=== PATIENT | female | born 1960 | race Caucasian/White ===

== ENCOUNTER 2016-05-17 14:20 | Outpatient (CLI) | payer MEDICARE, OTHER ==
[~2016-05-17] VITALS: Ht 165.1 cm; Wt 82.7 kg
[~2016-05-17 14:20] MED LIST: BACLOFEN20 M1 PO; DYAZIDE 37.5/251 CAP PO; GILENYA PO; K-TAB10 MEQ PO; KLONOPIN0.5 MG PO; LOPRESSOR25 MG PO; NEURONTIN 300300 MG PO; NUVIGIL150 MG PO; OXYBUTYNIN CHLOR5 MG PO; PAXIL CR25 MG PO; PLAVIX75 MG PO; PRAVACHOL20 MG PO; PRILOSEC20 MG PO; [UNRECOGNIZED DRUG - OTHER]
[2016-05-17 15:38] VITALS: Ht 165.1 cm; Wt 82.7 kg
== END 2016-05-17 15:55 | disposition home or self-care (01) ==
LOC: D.OPS 14:20
DX: G35 Multiple sclerosis (principal)

== ENCOUNTER 2016-09-05 14:08 | Outpatient (CLI) | payer MEDICARE, OTHER ==
[~2016-09-05] VITALS: Ht 165.1 cm; Wt 77.3 kg
[2016-09-05] MEDS ORDERED: COPAXONE INJ20 MG/ML SQ (15:25)
[2016-09-05 15:30] VITALS: BP 133/77; Ht 165.1 cm; Wt 77.3 kg
--- NOTE | 2016-09-05 15:44 | NUR ---
RIGHT UPPER CHEST AXCESS RIGHT INFUSAPORT WITH 19G GREGORIO NEEDLE USING STERILE TECHNIQUE, FLUSH AND PATENT GOOD BLOOD RETURN OBTAINED FLUSH WITH HEPARIN LOCK FLUSH. REMOVED GREGORIO NEELE INTACT. BANDAID APPLIED.
== END 2016-09-05 15:42 | disposition home or self-care (01) ==
LOC: D.OPS 14:08
DX: G35 Multiple sclerosis (principal)

== ENCOUNTER 2016-10-26 14:13 | Outpatient (CLI) | payer MEDICARE, OTHER ==
[~2016-10-26] VITALS: Ht 165.1 cm; Wt 82.3 kg
[~2016-10-26 14:13] MED LIST changes: +COPAXONE INJ20 MG/ML SQ
[2016-10-26] MEDS ORDERED: REQUIP5 MG PO (14:34)
[2016-10-26] MEDS ORDERED: CELEXA20 MG PO (14:34)
[2016-10-26 14:38] VITALS: BP 128/61; Ht 165.1 cm; Wt 82.3 kg
--- NOTE | 2016-10-26 15:25 | NUR ---
1520 PT GIVEN DISCHARGE INSTRUCTIONS. NO QUESTIONS OR CONCERNS. ESCORTED PATIENT OUT.
== END 2016-10-26 15:20 ==
LOC: D.OPS 14:13
DX: G35 Multiple sclerosis (principal)

== ENCOUNTER → 2016-11-25 14:05 | Outpatient (CLI) | payer MEDICARE, OTHER ==
[2016-10-26 14:38] VITALS: BMI 30.1
[~2016-11-25 14:05] MED LIST changes: +CELEXA20 MG PO; +REQUIP5 MG PO
== END | disposition home or self-care (01) ==
LOC: D.NM 11-22 14:00
DX: K62.5 Hemorrhage of anus and rectum (principal)

== ENCOUNTER 2016-12-28 14:25 | Outpatient (CLI) | payer MEDICARE, OTHER ==
[~2016-12-28] VITALS: Ht 165.1 cm; Wt 73.2 kg
--- NOTE | 2016-12-28 15:15 | NUR ---
RIGHT SCL INFUSAPORT ACCESSED USING STERILE TECHNIQUE WITH 19G X 1 INCH GREGORIO NEEDLE/PREPRIMED WITH NS. GOOD BLOOD RETURN NOTED, FLUSHED WITH 10ML NS AND 500 UNITS OF HEPARIN/100 UNITS PER ML. TOLERATED WELL, NEEDLE REMOVED, BANDAID APPLIED.
[2016-12-28 15:21] VITALS: BP 140/78; BMI 26.8
[2016-12-28 15:33] VITALS: BP 140/78; Ht 165.1 cm; Wt 73.2 kg
== END 2016-12-28 15:30 | disposition home or self-care (01) ==
LOC: D.OPS 14:25
DX: G35 Multiple sclerosis (principal)

== ENCOUNTER 2017-01-30 10:30 | Outpatient (CLI) | payer MEDICARE, OTHER ==
[~2017-01-30 10:30] MED LIST changes: +CELEXA10 MG PO; -CELEXA20 MG PO
[2017-01-30 12:06] VITALS: BMI 26.8
== END 2017-01-30 23:59 | disposition home or self-care (01) ==
LOC: D.OPS 10:30 → EDSTATUS 02-15 13:30 → D.OPS 02-15 13:30
DX: K21.0 Gastro-esophageal reflux disease with esophagitis (principal); K44.9 Diaphragmatic hernia without obstruction or gangrene; R12 Heartburn; Z01.812 Encounter for preprocedural laboratory examination

== ENCOUNTER 2017-01-30 11:31 | Day surgery (SDC) | payer MEDICARE, OTHER ==
[2017-01-30 11:30] LABS: HEMATOCRIT 41.7 % (36.0-48.0); MCH 24.4 pg (26.0-34.0); MCHC 31.2 g/dL (31.0-37.0); MCV 78.4 fL (80.0-100.0); MEAN PLATELET VOLUME 8.9 fL (7.4-10.4); RBC 5.32 10x6/uL (4.00-5.40); RDW 22.6 % (11.5-14.5); WBC 3.4 10x3/uL (4.8-10.8)
[2017-01-30 12:06] VITALS: BP 137/70; BMI 26.8
--- NOTE | 2017-01-30 13:00 | NUR ---
PT REC'D TO ROOM VIA STRETCHER. DROWSY, RESPONDS TO VERBAL STIMULI. VOISE IN TO TALK WITH PT AND CAREGIVER.
--- NOTE | 2017-01-30 13:34 | NUR ---
PT AWAKE, FL RUY PROVIDED, ASSISTED BY CAREGIVER.
--- NOTE | 2017-01-30 13:47 | NUR ---
TOLERATED FULL LIQ DIET
--- NOTE | 2017-01-30 14:10 | NUR ---
RIGHT PORT FLUSHED WITH NS FOLLOWED BY HEP FLUSH PER PROTOCOL. GREGORIO NEEDLE D/C'D CATH INTACT, SITE COVERED WITH BANDAID.
--- NOTE | 2017-01-30 14:20 | NUR ---
PT HERE TO ASSIST PT BACK TO W/C.
--- NOTE | 2017-01-30 14:45 | NUR ---
D/C INSTRUCTIONS EXPLAINED TO PT AND CAREGIVER. COPIES OF ALL GIVEN. D/C'D HOME VIA W/C TO PRIVATE CAR.
--- NOTE | 2017-02-16 07:24 | OP ---
PATIENT NAME: ALBERT GARCIA MEDICAL RECORD: [id number] :62 LOCATION:[facility] ADMISSION DATE: SURGEON: WASHINGTON DAVIS DO DATE OF OPERATION: 01/30/2017 PROCEDURE: EGD with biopsies. INDICATIONS FOR PROCEDURE: Heartburn. SCOPE: Olympus video gastroscope. MEDICATIONS: Propofol 70 mg IV per anesthesia. ESTIMATED BLOOD LOSS: Minimal. COMPLICATIONS: None. FINDINGS: Informed consent was given. The patient was made comfortable with the above medication. After reaching an adequate level of sedation by slow IV push, the patient was placed on her left side. The endoscope was then advanced under direct visualization through the mouth to the third portion of the duodenum. The upper and middle thirds of the esophagus appeared normal. In the lower third of the esophagus and down to the GE junction, there was evidence of LA class B reflux induced esophagitis with a couple streaks extending upward approximately 5 or more centimeters. From the GE junction and from a retroflexed view within the stomach, a medium-sized hiatal hernia was evident. It was approximately 4 mm in length. There were no associated ulcers or erosions. The mucosa of the stomach was normal in its entirety. Random biopsies were taken from the antrum, incisura, and body of the stomach to submit for histology and to rule out H. pylori. The endoscope was advanced beyond the pylorus into the duodenum where the whole exam of the duodenum appeared normal. Scope was withdrawn from the patient. The patient tolerated the procedure well and there were no complications. IMPRESSION: 1. LA class B reflux-induced esophagitis. 2. Moderate sized hiatal hernia, likely relating to reflux. PLAN AND RECOMMENDATIONS: 1. Discharge home when recovery parameters are met. 2. Follow up biopsy specimen results. 3. GERD diet and reflux precautions. 4. Continue omeprazole 20 mg daily versus trial of Pepcid or Zantac once daily. 5. We will discuss the option of a referral to surgery for consideration of a fundoplication with the patient. As well as her symptoms are controlled, she may benefit most from staying on her current antacid therapy and avoiding surgery. 6. Proceed with colonoscopy as scheduled for colon cancer screening. 7. Follow up in GI clinic as needed. TRANSINT:[id number] Voice Confirmation ID: [id number] DOCUMENT ID: [id number] OPERATIVE REPORT [id number] RADHA,ALBERTWASHINGTON DRISCOLL DO at 0724 CC: [id number] DICTATION DATE: 01/30/17 1247 CONSUMER RELATIONS SPECIALIST: 01/30/17 1417 [facility] 01/30/17 [facility] [address] [place] [address]
== END 2017-01-30 14:48 | disposition home or self-care (01) ==
LOC: D.OPS 11:31
PROVIDERS: Anesthesiology
DX: R12 Heartburn (principal); Z87.891 Personal history of nicotine dependence; I25.10 Atherosclerotic heart disease of native coronary artery without angina pectoris; K21.0 Gastro-esophageal reflux disease with esophagitis; Z95.5 Presence of coronary angioplasty implant and graft; K44.9 Diaphragmatic hernia without obstruction or gangrene; Z01.812 Encounter for preprocedural laboratory examination

== ENCOUNTER 2017-04-25 13:25 | Outpatient (CLI) | payer MEDICARE, OTHER ==
[~2017-04-25] VITALS: Ht 165.1 cm; Wt 73.6 kg
[2017-04-25 14:09] VITALS: Ht 165.1 cm; Wt 73.6 kg
== END 2017-04-25 14:36 | disposition home or self-care (01) ==
LOC: D.OPS 13:25
DX: Z45.2 Encounter for adjustment and management of vascular access device (principal); G35 Multiple sclerosis

== ENCOUNTER 2017-08-15 13:48 | Outpatient (CLI) | payer MEDICARE, OTHER ==
[~2017-08-15] VITALS: Ht 165.1 cm; Wt 75.9 kg
[2017-08-15 14:18] VITALS: BP 130/64; Ht 165.1 cm; Wt 75.9 kg
== END 2017-08-15 14:49 | disposition home or self-care (01) ==
LOC: D.OPS 13:48
DX: G35 Multiple sclerosis (principal)

== ENCOUNTER 2017-09-14 13:58 | Outpatient (CLI) | payer MEDICARE, OTHER ==
[~2017-09-14] VITALS: Ht 165.1 cm; Wt 73.6 kg
[2017-09-14 14:26] VITALS: BP 117/60; Ht 165.1 cm; Wt 73.6 kg
== END 2017-09-14 14:40 | disposition home or self-care (01) ==
LOC: D.OPS 13:58
DX: G35 Multiple sclerosis (principal)

== ENCOUNTER 2017-10-26 13:57 | Outpatient (CLI) | payer MEDICARE, OTHER ==
[~2017-10-26] VITALS: Ht 165.1 cm; Wt 74.1 kg
[2017-10-26 14:17] VITALS: BP 138/64; Ht 165.1 cm; Wt 74.1 kg
== END 2017-10-26 14:39 | disposition home or self-care (01) ==
LOC: D.OPS 13:57
DX: G35 Multiple sclerosis (principal); Z01.812 Encounter for preprocedural laboratory examination

== ENCOUNTER 2017-12-13 14:22 | Outpatient (CLI) | payer MEDICARE, OTHER ==
[~2017-12-13] VITALS: Ht 165.1 cm; Wt 73.6 kg
[2017-12-13 14:43] VITALS: BP 113/64; Ht 165.1 cm; Wt 73.6 kg
== END 2017-12-13 15:00 ==
LOC: D.OPS 14:22
DX: G35 Multiple sclerosis (principal); Z01.812 Encounter for preprocedural laboratory examination

== ENCOUNTER → 2018-02-08 11:58 | Outpatient (CLI) | payer MEDICARE, OTHER ==
[~2018-02-08] VITALS: Ht 165.1 cm; Wt 75.9 kg
[2018-02-08 12:40] VITALS: BP 125/68; Ht 165.1 cm; Wt 75.9 kg
== END | disposition home or self-care (01) ==
LOC: D.OPS 11:58
DX: G35 Multiple sclerosis (principal); Z01.812 Encounter for preprocedural laboratory examination

== ENCOUNTER 2018-04-05 13:34 | Outpatient (CLI) | payer MEDICARE, OTHER ==
[~2018-04-05] VITALS: Ht 165.1 cm; Wt 75.9 kg
[2018-04-05 14:22] VITALS: BP 114/58; Ht 165.1 cm; Wt 75.9 kg
== END 2018-04-05 14:49 | disposition home or self-care (01) ==
LOC: D.OPS 13:34
DX: G35 Multiple sclerosis (principal); Z01.812 Encounter for preprocedural laboratory examination

== ENCOUNTER 2018-05-15 14:19 | Outpatient (CLI) | payer MEDICARE, OTHER ==
[~2018-05-15] VITALS: Ht 165.1 cm; Wt 78.2 kg
[2018-05-15 14:58] VITALS: Ht 165.1 cm; Wt 78.2 kg
== END 2018-05-15 15:15 | disposition home or self-care (01) ==
LOC: D.OPS 14:19
DX: G35 Multiple sclerosis (principal)

== ENCOUNTER 2018-06-14 14:16 | Outpatient (CLI) | payer MEDICARE, OTHER ==
[~2018-06-14] VITALS: Ht 165.1 cm; Wt 75.0 kg
[2018-06-14 14:50] VITALS: BP 107/49; Ht 165.1 cm; Wt 75.0 kg
--- NOTE | 2018-06-14 15:26 | NUR ---
1451 ACCESSED PAC USING STERILE TECHNIQUE WITH 19G 1" GREGORIO NEEDLE. EXCELLENT BLOOD RETURN OBTAINED. FLUSHED WITH 10CC NS AND 5CC HEPFLUSH. GREGORIO NEEDLE REMOVED WITHOUT DIFFICULTY. NEEDLE INTACT. BANDAID APPLIED.
== END 2018-06-14 15:18 | disposition home or self-care (01) ==
LOC: D.OPS 14:16
PROVIDERS: ATTEND Family Medicine
DX: G35 Multiple sclerosis (principal)

== ENCOUNTER 2018-07-20 16:05 | Inpatient (IN) | payer MEDICARE, OTHER ==
[2018-07-20] MEDS ORDERED: TAMOXIFEN CITRA20 MG PO (18:19)
[2018-07-20 18:30] VITALS: BP 146/75; BMI 28.6
[2018-07-20 19:04] LABS: BASOPHILS 0.2 % (0-2); EOSINOPHILS 1.1 % (0-7); HEMOGLOBIN 11.9 g/dL (12-16); IMMATURE GRANULOCYTES 0.1 % (0-5); MCH 27.2 pg (26.0-34.0); MCHC 33.1 g/dL (31.0-37.0); MCV 82.2 fL (80.0-100.0); MEAN PLATELET VOLUME 9.2 fL (7.4-10.4); NEUTROPHILS 69.6 % (40-80); PLATELET COUNT 204 10x3/uL (130-400); RBC 4.38 10x6/uL (4.00-5.40); RDW 14.6 % (11.5-14.5); WBC 9.1 10x3/uL (4.8-10.8)
[2018-07-20 19:08] LABS: CALC OSMOLALITY 273 mosm/kg (275-300); CALCIUM 8.9 mg/dL (8.5-10.1); CARBON DIOXIDE 30.3 mmol/L (21.0-32.0); CHLORIDE - SERUM 97 mmol/L (98-107); CREATININE - SERUM 0.5 mg/dL (0.6-1.3); GLUCOSE 88 mg/dL (74-106); POTASSIUM - SERUM 3.5 mmol/L (3.5-5.1); SODIUM 137 mmol/L (136-145); UREA NITROGEN 14 mg/dL (7-18); eGFR NON AFRICAN AMERICAN > 90 mL/min (90-120)
[2018-07-20 19:36] LABS: CKMB 3.1 U/L (0.0-3.6); CREATINE KINASE 89 UL (21-215)
[2018-07-20 19:40] LABS: TROPONIN-I < 0.017 ng/mL (0.000-0.060)
[2018-07-20 19:56] VITALS: BP 145/61
[2018-07-21] VITALS: BP 91/45
[2018-07-21 00:15] LABS: CKMB 2.4 U/L (0.0-3.6); CREATINE KINASE 71 UL (21-215); TROPONIN-I < 0.017 ng/mL (0.000-0.060)
[2018-07-21 05:22] LABS: BASOPHILS 0.4 % (0-2); EOSINOPHILS 2.4 % (0-7); HEMATOCRIT 30.7 % (36.0-48.0); HEMOGLOBIN 10.3 g/dL (12-16); IMMATURE GRANULOCYTES 0.2 % (0-5); LYMPHOCYTES 25.1 % (15-50); MCH 27.5 pg (26.0-34.0); MCHC 33.6 g/dL (31.0-37.0); MCV 82.1 fL (80.0-100.0); MEAN PLATELET VOLUME 9.2 fL (7.4-10.4); NEUTROPHILS 59.9 % (40-80); PLATELET COUNT 175 10x3/uL (130-400); RBC 3.74 10x6/uL (4.00-5.40); RDW 14.7 % (11.5-14.5)
[2018-07-21 05:55] LABS: ALBUMIN 2.8 g/dL (3.4-5.0); ALKALINE PHOSPHATASE 42 U/L (46-116); ALT (SGPT) 23 U/L (10-68); BILIRUBIN - TOTAL 0.34 mg/dL (0.2-1.3); CALC OSMOLALITY 277 mosm/kg (275-300); CALCIUM 7.8 mg/dL (8.5-10.1); CARBON DIOXIDE 31.4 mmol/L (21.0-32.0); CHLORIDE - SERUM 102 mmol/L (98-107); CREATINE KINASE 65 UL (21-215); CREATININE - SERUM 0.5 mg/dL (0.6-1.3); GLUCOSE 90 mg/dL (74-106); POTASSIUM - SERUM 3.6 mmol/L (3.5-5.1); PROTEIN - SERUM 5.5 g/dL (6.4-8.2); SODIUM 139 mmol/L (136-145); TROPONIN-I < 0.017 ng/mL (0.000-0.060); UREA NITROGEN 12 mg/dL (7-18); eGFR NON AFRICAN AMERICAN > 90 mL/min (90-120)
[2018-07-21 08:59] VITALS: BP 103/54
[2018-07-21] MEDS ORDERED: ZITHROMAX250 MG PO (13:58)
[2018-07-21 14:48] VITALS: BP 113/44
== END 2018-07-21 16:33 | disposition home or self-care (01) | DRG 194 ==
LOC: D.MS 16:05
PROVIDERS: ADMIT Family Medicine
DX: J18.9 Pneumonia, unspecified organism (principal); J98.11 Atelectasis; G35 Multiple sclerosis; M62.3 Immobility syndrome (paraplegic)

== ENCOUNTER 2018-09-20 13:58 | Outpatient (CLI) | payer MEDICARE, OTHER ==
[~2018-09-20] VITALS: Ht 165.1 cm; Wt 79.5 kg
[~2018-09-20 13:58] MED LIST changes: +TAMOXIFEN CITRA20 MG PO; +ZITHROMAX250 MG PO
[2018-09-20 14:54] VITALS: BP 112/67; Ht 165.1 cm; Wt 79.5 kg
--- NOTE | 2018-09-20 15:10 | NUR ---
PT PORT ACCESSED AND FLUSHED AT THIS TIME. PT TOLERATED WELL.
--- NOTE | 2018-09-20 15:20 | NUR ---
PT DC INSTRUCTIONS REVIEWED AT THIS TIME, PT VERBALIZES UNDERSTANDING.
== END 2018-09-20 15:23 | disposition home or self-care (01) ==
LOC: D.OPS 13:58
PROVIDERS: ATTEND Family Medicine
DX: G35 Multiple sclerosis (principal)

== ENCOUNTER 2018-11-12 14:31 | Outpatient (CLI) | payer MEDICARE, OTHER ==
[~2018-11-12] VITALS: Ht 165.1 cm; Wt 79.5 kg
[2018-11-12 15:08] VITALS: Ht 165.1 cm; Wt 79.5 kg
== END 2018-11-12 15:43 | disposition home or self-care (01) ==
LOC: D.OPS 14:31
PROVIDERS: ATTEND Family Medicine
DX: G35 Multiple sclerosis (principal)

== ENCOUNTER 2019-01-07 14:37 | Outpatient (CLI) | payer MEDICARE, OTHER ==
[~2019-01-07] VITALS: Ht 165.1 cm; Wt 79.5 kg
[2019-01-07 15:05] VITALS: Ht 165.1 cm; Wt 79.5 kg
== END 2019-01-07 15:25 | disposition home or self-care (01) ==
LOC: D.OPS 14:37
PROVIDERS: ATTEND Family Medicine
DX: G35 Multiple sclerosis (principal)

== ENCOUNTER → 2019-01-15 12:53 | Outpatient (CLI) | payer MEDICARE, OTHER ==
[2019-01-07 15:05] VITALS: BMI 29.1
== END | disposition home or self-care (01) ==
LOC: D.RT 12:53
PROVIDERS: ATTEND Internal Medicine Pulmonary Disease
DX: R06.00 Dyspnea, unspecified (principal)

== ENCOUNTER 2019-03-06 12:53 | Outpatient (CLI) | payer MEDICARE, OTHER ==
[~2019-03-06] VITALS: Ht 165.1 cm; Wt 70.9 kg
--- NOTE | ~2019-03-06 | EC ---
PATIENT:ALBERT GARCIA DATE OF SERVICE: 03/06/19 SEX: F MEDICAL RECORD: [id number] DATE OF : 62 LOCATION:D[facility] AGE OF PATIENT: 58 ADMISSION DATE: 03/06/19 REFERRING PHYSICIAN: INTERPRETING PHYSICIAN: KAY JENNINGS MD ECHOCARDIOGRAM REPORT ECHO CHARGES 4 ECHO COMPLETE Date: 03/06/19 CLINICAL DIAGNOSIS: CAD/ASSESS EF AND VALVES HX HTN ECHOCARDIOGRAPHIC MEASUREMENTS (adult normal given) AC root (d.<3.7cm) 3.0 cm LV Septum d (<1.2 cm> 1.3 cm Valve Excursion 1.6 cm LV Septum (systole) 1.4 cm Left Atria (s.<4.0cm> 3.9 cm LVPW d(<1.2cm) 1.4 cm RV (d.<2.3cm) 3.8 cm LVPW (sytole) 1.5 cm LV diastole(<5.6CM) 5.1 cm MV E-F(>70mm/sec) cm LV systole 3.8 cm LVOT Diameter 1.6 cm MV exc.(>10mm) 1.2 cm Est.ejection fraction (50-75%) % DOPPLER: LVIT cm/sec A 46.0 cm/sec E 58.0 cm/sec LA cm/sec RVSP 32 mmHg LVOT 96 cm/sec AOP1/2T m/s Asc. Ao cm/sec RVOT 77 cm/sec RA cm/sec PA 80 cm/sec AV Gradient Peak mmHg AV Mean mmHg AV Area 3.3 cm MV Gradient Peak 2.57 mmHg MV Mean 1.04 mmHg MV Area cm COMMENTS: Vacuum Pan Operator: Laz HENRY Food Mixer Repairer: 1 Dr. Jennings TAPE# PACS Pericardial Effusion N DATE OF SERVICE: 03/06/2019 FINDINGS: 1. Left ventricular chamber size is within normal limits. Left ventricular systolic function is normal. Overall ejection fraction estimated at 65%. 2. Left atrium, right atrium, and right ventricle chamber sizes are within normal limits. 3. Valvular structures have normal structure and motion. 4. Doppler interrogation reveals mild tricuspid regurgitation, no other valvular insufficiency or stenosis. Pulmonary systolic pressure is normal ECHOCARDIOGRAM REPORT [id number] ALBERT GARCIA estimated at 32 mmHg. 5. No evidence of pericardial effusion or left ventricular thrombus. TRANSINT:[id number] Voice Confirmation ID: [id number] DOCUMENT ID: [id number] KAY JENNINGS MD CC: [id number] DICTATION DATE: 03/06/19 1617 CORRECTIONAL TREATMENT SPECIALIST: 03/06/19 2254 DEP CLI 03/06/19 [facility] [address] [place] [id number]
[2019-03-06 13:58] VITALS: Ht 165.1 cm; Wt 70.9 kg
== END 2019-03-06 13:50 | disposition home or self-care (01) ==
LOC: D.HCCECHO 12:53
PROVIDERS: ATTEND Internal Medicine Interventional Cardiology
DX: I25.10 Atherosclerotic heart disease of native coronary artery without angina pectoris (principal); G35 Multiple sclerosis

== ENCOUNTER → 2019-04-01 15:12 | Outpatient (CLI) | payer MEDICARE, OTHER ==
[2019-03-06 13:58] VITALS: BMI 26.0
== END | disposition home or self-care (01) ==
LOC: D.CT 08:30
PROVIDERS: ATTEND Family Medicine
DX: I73.9 Peripheral vascular disease, unspecified (principal)

== ENCOUNTER 2019-06-17 14:32 | Outpatient (CLI) | payer MEDICARE, OTHER ==
[~2019-06-17] VITALS: Ht 165.1 cm; Wt 81.8 kg
[2019-06-17 15:30] VITALS: Ht 165.1 cm; Wt 81.8 kg
--- NOTE | 2019-06-17 15:53 | NUR ---
1545 PORT FLUSH EASILY WITH 20G 1" GREGORIO NEEDLE 10CC NORMAL SALINE AND 5CC HEPARIN FLUSH, RELEASED IN OWN WC AFTERWARDS
== END 2019-06-17 15:52 | disposition home or self-care (01) ==
LOC: D.OPS 14:32
PROVIDERS: ATTEND Family Medicine
DX: G35 Multiple sclerosis (principal)

== ENCOUNTER 2019-09-24 03:44 | Observation (INO) | payer MEDICARE, OTHER ==
[2019-09-24] VITALS (8 sets, daily range): BP systolic 103–138; BP diastolic 50–79; Ht 165.1 cm; Wt 80.2 kg
[~2019-09-24] VITALS: Ht 165.1 cm; Wt 80.2 kg
--- NOTE | ~2019-09-24 | EC ---
PATIENT:ALBERT GARCIA DATE OF SERVICE: 09/24/19 SEX: F MEDICAL RECORD: [id number] DATE OF : 62 LOCATION:D.M2 D.210 AGE OF PATIENT: 58 ADMISSION DATE: 09/24/19 REFERRING PHYSICIAN: INTERPRETING PHYSICIAN: MAKSIM HALL MD ECHOCARDIOGRAM REPORT ECHO CHARGES 4 ECHO COMPLETE Date: 09/24/19 CLINICAL DIAGNOSIS: SOB ECHOCARDIOGRAPHIC MEASUREMENTS (adult normal given) AC root (d.<3.7cm) 2.5 cm LV Septum d (<1.2 cm> 0.8 cm Valve Excursion 1.3 cm LV Septum (systole) 1.1 cm Left Atria (s.<4.0cm> 4.0 cm LVPW d(<1.2cm) 1.1 cm RV (d.<2.3cm) 2.6 cm LVPW (sytole) 1.2 cm LV diastole(<5.6CM) 5.4 cm MV E-F(>70mm/sec) cm LV systole 4.2 cm LVOT Diameter 2.0 cm MV exc.(>10mm) cm Est.ejection fraction (50-75%) % DOPPLER: LVIT cm/sec A 51 cm/sec E 45 cm/sec LA cm/sec RVSP 33.8 mmHg LVOT 58 cm/sec AOP1/2T m/s Asc. Ao 112 cm/sec RVOT 71 cm/sec RA cm/sec PA 82 cm/sec AV Gradient Peak 5.0 mmHg AV Mean 3.4 mmHg AV Area 1.1 cm MV Gradient Peak 1.8 mmHg MV Mean 0.9 mmHg MV Area cm COMMENTS: Lumber Carrier Operator: Jose Roberto CHENG Systems Software Engineer: 4 Dr. Hall TAPE# PACS Pericardial Effusion N DATE OF SERVICE: 09/24/2019 DATE OF SERVICE: 09/24/2019 PROCEDURE: Transthoracic echocardiogram. LEFT VENTRICLE: Normal in size, shape, structure, and function with inflow characteristics consistent of diastolic dysfunction. No regional wall motion abnormalities. ECHOCARDIOGRAM REPORT [id number] ALBERT GARCIA LEFT ATRIUM: Normal in size, shape and structure. AORTIC VALVE: Normal tricuspid structure. MITRAL VALVE: Trace mitral regurgitation. TRICUSPID VALVE: Normal. RVSP is 33.8. RIGHT VENTRICLE: Normal. RIGHT ATRIUM: Normal. PULMONIC VALVE: Normal. There is no pericardial effusion. TRANSINT:[id number] Voice Confirmation ID: [id number] DOCUMENT ID: [id number] MAKSIM HALL MD CC: [id number] DICTATION DATE: 09/25/19926 DIRECTOR OF VALUATION: 09/25/19 1230 ADM IN [id number] [place] [address]
[2019-09-24] MEDS ORDERED: PROTONIX20 MG PO (03:51)
[2019-09-24] MEDS ORDERED: VALIUM5 MG PO (03:51)
[2019-09-24] MEDS ORDERED: LOW DOSE ASPIRI81 M1 PO (03:52)
[2019-09-24 04:23] LABS: BASOPHILS 0.2 % (0-2); EOSINOPHILS 1.4 % (0-7); HEMATOCRIT 37.1 % (36.0-48.0); HEMOGLOBIN 11.5 g/dL (12-16); LYMPHOCYTES 20.4 % (15-50); MCH 26.1 pg (26.0-34.0); MCV 84.1 fL (80.0-100.0); MEAN PLATELET VOLUME 9.3 fL (7.4-10.4); MONOCYTES 11.3 % (2-11); NEUTROPHILS 66.7 % (40-80); RBC 4.41 10x6/uL (4.00-5.40); WBC 4.4 10x3/uL (4.8-10.8)
[2019-09-24 04:35] LABS: PLATELET COUNT 239 10x3/uL (130-400)
[2019-09-24 04:37] LABS: CALC OSMOLALITY 282 mosm/kg (275-300); CALCIUM 9.1 mg/dL (8.5-10.1); CARBON DIOXIDE 29.8 mmol/L (21.0-32.0); CHLORIDE - SERUM 105 mmol/L (98-107); CREATININE - SERUM 0.8 mg/dL (0.6-1.3); GLUCOSE 111 mg/dL (74-106); POTASSIUM - SERUM 4.3 mmol/L (3.5-5.1); SODIUM 141 mmol/L (136-145); UREA NITROGEN 16 mg/dL (7-18); eGFR NON AFRICAN AMERICAN 78 mL/min (90-120)
[2019-09-24 04:41] LABS: APTT 24.2 SECONDS (22.8-39.4); INR 0.88 (0.85-1.17)
[2019-09-24 04:42] LABS: D-DIMER-QUANTITATIVE 0.42 ug/mLFEU (0.20-0.54)
[2019-09-24 04:59] LABS: ALBUMIN 3.4 g/dL (3.4-5.0); ALKALINE PHOSPHATASE 70 U/L (30-120); ALT (SGPT) 23 U/L (10-68); BILIRUBIN - TOTAL 0.21 mg/dL (0.2-1.3); CREATINE KINASE 50 UL (21-215); LIPASE 90 U/L (73-393); PRO BNP 275 pg/mL (0-125); THYROID STIMULATING HORMONE 1.04 uIU/mL (0.36-3.74)
[2019-09-24 05:06] LABS: TROPONIN-I 0.069 ng/mL (0.000-0.060)
--- NOTE | 2019-09-24 07:20 | NUR ---
ASSUMED CARE OF PT AT THIS TIME.
[2019-09-24 09:12] LABS: BILIRUBIN NEGATIVE (NEGATIVE); GLUCOSE NEGATIVE (NEGATIVE); KETONE NEGATIVE (NEGATIVE); NITRITE NEGATIVE (NEGATIVE); SPECIFIC GRAVITY 1.025 (1.005-1.020); UROBILINOGEN NORMAL (NORMAL)
--- NOTE | 2019-09-24 10:10 | NUR ---
REPORT RECIEVED FROM ER. PT ARRIVED TO ROOM. RR EVEN AND UNLABORED ON RA. PT HAS A WHEELER FOR A NEUROGENIC BLADDER. SHE HAS A RIGHT PORT THAT WAS ACCESSED IN THE ED. SNACKS GIVEN TO PT AT THIS TIME. BED LOCKED AND IN LOWEST POSITION, CALL LIGHT WITHIN REACH. WILL CTM
--- NOTE | 2019-09-24 10:55 | NUR ---
I have reviewed this patient and I concur with the Shift Assessment completed by the Licensed Practical Nurse today this shift.
[2019-09-24 15:34] LABS: CKMB 2.8 U/L (0.0-3.6); CREATINE KINASE 110 UL (21-215)
[2019-09-24 15:36] LABS: TROPONIN-I 0.382 ng/mL (0.000-0.060)
--- NOTE | 2019-09-24 19:35 | NUR ---
PT ALERT AND OX4 LEFT SIDE WEAKNESS ADJUSTED LIGHT PULL FOR PT AND CALL LIGHT IS IN REACH BED LOW AND LOCKED
--- NOTE | 2019-09-25 01:07 | NUR ---
I have reviewed this patient and I concur with the Shift Assessment completed by the Licensed Practical Nurse today this shift.
[2019-09-25 04:05] VITALS: BP 107/59
[2019-09-25 06:29] LABS: BASOPHILS 0.2 % (0-2); EOSINOPHILS 1.4 % (0-7); HEMATOCRIT 32.5 % (36.0-48.0); HEMOGLOBIN 10.1 g/dL (12-16); LYMPHOCYTES 38.9 % (15-50); MCH 25.9 pg (26.0-34.0); MCHC 31.1 g/dL (31.0-37.0); MCV 83.3 fL (80.0-100.0); MEAN PLATELET VOLUME 9.4 fL (7.4-10.4); MONOCYTES 10.8 % (2-11); NEUTROPHILS 48.7 % (40-80); PLATELET COUNT 221 10x3/uL (130-400); WBC 4.3 10x3/uL (4.8-10.8)
[2019-09-25 06:54] LABS: ALKALINE PHOSPHATASE 38 U/L (30-120); ALT (SGPT) 19 U/L (10-68); BILIRUBIN - TOTAL 0.37 mg/dL (0.2-1.3); CALC OSMOLALITY 277 mosm/kg (275-300); CALCIUM 8.5 mg/dL (8.5-10.1); CARBON DIOXIDE 31.6 mmol/L (21.0-32.0); CHLORIDE - SERUM 105 mmol/L (98-107); CKMB 2.4 U/L (0.0-3.6); CREATINE KINASE 84 UL (21-215); CREATININE - SERUM 0.6 mg/dL (0.6-1.3); GLUCOSE 75 mg/dL (74-106); POTASSIUM - SERUM 3.9 mmol/L (3.5-5.1); PROTEIN - SERUM 5.7 g/dL (6.4-8.2); SODIUM 139 mmol/L (136-145); UREA NITROGEN 14 mg/dL (7-18); eGFR NON AFRICAN AMERICAN > 90 mL/min (90-120)
[2019-09-25 06:55] LABS: TROPONIN-I 0.471 ng/mL (0.000-0.060)
[2019-09-25 08:11] VITALS: BP 113/52
--- NOTE | 2019-09-25 12:59 | NUR ---
I have reviewed this patient and I concur with the Shift Assessment completed by the Licensed Practical Nurse today this shift.
--- NOTE | 2019-09-25 13:04 | NUR ---
DC PAPERWORK GONE OVER AND SIGNED WITH PT. ALL QUESTIONS ANSWERED. WHEELER REMOVED PER ORDER. PORT HEPARIN LOCKED THEN DC BY TOMY SMYTH. ALL VALUBLES REMOVED FROM ROOM.
--- NOTE | 2019-09-26 07:30 | MORECARE ---
CASE MANAGEMENT DISCHARGE SUMMARY PATIENT: ALBERT GARCIA UNIT: [id number] ADM DATE: 09/24/19 AGE: 58 : 62 SEX: F ROOM/BED: D.2102 AUTHOR: SULEMA AREVALO PHYSICIAN: REFERRING PHYSICIAN: PEDRO OJEDA MD DATE OF SERVICE: 09/26/19 Discharge Plan Patient Name: ALBERT GARCIA [facility] [facility] 1960 Planned Disposition: Anticipated Discharge Date: Discharge Date: 09/25/2019 Expected LOS: 0 Initial Reviewer: [email or web address] Initial Review Date: 09/26/2019 Generated: 09/26/19 8:30 am Coverage Notice Reviewer: [email or web address] - Thania Larson Notice Issued Date-Time: 09/24/2019 15:13 Notice Type: Medicare Outpatient Observation Notice Notice Delivered To: Patient Relationship to Patient: Self Casting Chipper Name: Delivery Method: HAND - Hand Delivered Gris Days: Prior Verbal Notification: Recipient Understood Notice: Yes Recipient Signature: Med Rec Note Co-signed by Attending: Coverage Notice Comment: BOWMAN given, she is unable to sign due to medical history, voiced understanding, given, copy placed in MR Patient Name: ALBERT GARCIA Page [phone] at 0730 All edits/amendments must be made on the electronic document DICTATION DATE: 09/26/19729 RADIOLOGICAL METALLURGIST: [email or web address] 09/26/19 07 RPT#: [id number] DC DATE:09/25/19 STATUS: DIS IN [facility] [address] [facility] [place] [address] END OF REPORT
== END 2019-09-25 13:06 | disposition home or self-care (01) ==
LOC: D.ER 03:44 → OBSVTIME 08:50 → D.M2 08:50
PROVIDERS: Family Medicine; ADMIT Family Medicine; ATTEND Family Medicine
DX: I25.10 Atherosclerotic heart disease of native coronary artery without angina pectoris (principal); R06.02 Shortness of breath; K21.9 Gastro-esophageal reflux disease without esophagitis; G35 Multiple sclerosis; N31.9 Neuromuscular dysfunction of bladder, unspecified; N39.498 Other specified urinary incontinence

== ENCOUNTER → 2020-06-17 12:08 | Outpatient (CLI) | payer MEDICARE, OTHER ==
[2020-04-16 14:52] VITALS: BMI 30.3
[~2020-06-17 12:08] MED LIST changes: +LOW DOSE ASPIRI81 M1 PO; +PROTONIX20 MG PO; +VALIUM5 MG PO
== END | disposition home or self-care (01) ==
LOC: D.US 12:08
PROVIDERS: ATTEND Family Medicine
DX: R60.0 Localized edema (principal)

== ENCOUNTER 2020-07-03 14:09 | Outpatient (CLI) | payer MEDICARE, OTHER ==
[2020-04-16 14:52] VITALS: BMI 30.3
== END 2020-07-03 16:15 | disposition home or self-care (01) ==
LOC: D.OPS 14:09
PROVIDERS: ATTEND Family Medicine
DX: G35 Multiple sclerosis (principal)

== ENCOUNTER 2020-09-16 14:25 | Day surgery (SDC) | payer MEDICARE, OTHER ==
[~2020-09-16] VITALS: Ht 165.1 cm; Wt 79.5 kg
[2020-09-16 15:10] VITALS: BP 122/72; Ht 165.1 cm; Wt 79.5 kg
== END 2020-09-16 15:12 | disposition home or self-care, planned readmission (81) ==
LOC: D.OPS 14:25
PROVIDERS: ATTEND Family Medicine
DX: G35 Multiple sclerosis (principal)

== ENCOUNTER → 2020-09-28 12:46 | Outpatient (CLI) | payer MEDICARE, OTHER ==
[2020-09-16 15:10] VITALS: BMI 29.1
== END | disposition home or self-care (01) ==
LOC: D.US 12:46
PROVIDERS: ATTEND Family Medicine
DX: I82.C12 Acute embolism and thrombosis of left internal jugular vein (principal)